=== PATIENT | female | born 1995 | race African-American/Black ===

== ENCOUNTER 2021-07-22 15:28 | Emergency (ER) | payer MEDICAID, OTHER ==
[~2021-07-22] VITALS: Ht 160 cm; Wt 45.4 kg
[2021-07-22 16:26] VITALS: BP 109/68
== END 2021-07-22 17:05 | disposition home or self-care (01) ==
LOC: ER 15:28
DX: O99.511 Diseases of the respiratory system complicating pregnancy, first trimester (principal); Z3A.12 12 weeks gestation of pregnancy; Z20.822 Contact with and (suspected) exposure to COVID-19
CPT/HCPCS: 36415; 87426